=== PATIENT | female | born 1985 | race Hispanic/Latino ===

== ENCOUNTER 2017-12-08 23:06 | Emergency (ER) | payer SELFPAY ==
[~2017-12-08] VITALS: Ht 154.9 cm; Wt 96.9 kg
--- OUTSIDE RECORDS SUMMARY | 2017-12-08 23:09 | XMS REPORT | Clinical Summary ---
Author Author [facility] Organization [facility] Address Unknown Phone Unavailable Care Team Providers Care Mass Communications Professor Name Role Phone PCP Unavailable Allergies No Known Allergies Current Medications Prescription Sig. Disp. Refills Start End Date Status Date albuterol HFA (VENTOLIN Inhale 1-2 puffs by mouth 1 Inhaler 0 10/13/19 Active HFA) 90 mcg/actuation via inhaler every 6 (six) 18 19 inhaler hours as needed for Wheezing. guaiFENesin (MUCINEX) 600 Take 1 tablet (600 mg 20 tablet 0 10/15/19 10/15/19 Active mg 12 hr tablet total) by mouth 2 (two) 18 19 times daily. fluticasone (FLONASE) 50 1 spray by Nasal route 16 g 0 10/15/19 Active mcg/actuation nasal spray daily. 18 19 brompheniramine-pseudoeph Take 10 mLs by mouth 118 mL 0 10/15/19 Active -DM (BROMFED DM) 2-30-10 every 4 (four) hours as 18 mg/5 mL Syrp needed. albuterol (PROVENTIL) 2.5 Take 3 mLs (2.5 mg total) 75 mL 0 07/03/20 07/03/20 mg /3 mL (0.083 %) by nebulization every 6 16 17 nebulizer solution (six) hours as needed for Wheezing. ibuprofen (ADVIL,MOTRIN) Take 1 tablet (600 mg 30 tablet 0 11/29/19 12/09/19 600 MG tablet total) by mouth every 6 17 17 (six) hours as needed for Pain for up to 10 days. amoxicillin (AMOXIL) 500 Take 1 capsule (500 mg 30 capsule 0 11/29/19 12/09/19 MG capsule total) by mouth 3 (three) 17 17 times daily for 10 days. oseltamivir (TAMIFLU) 75 Take 1 capsule (75 mg 10 capsule 0 10/13/19 10/19/19 MG capsule total) by mouth every 12 18 18 (twelve) hours for 5 days. azithromycin (ZITHROMAX) Take 1 tablet (250 mg 6 tablet 0 10/13/19 10/19/19 250 MG tablet total) by mouth daily for 18 18 5 days Take first 2 tablets together, then 1 every day until finished.. predniSONE (DELTASONE) 20 Take 1 tablet (20 mg 10 tablet 0 10/13/19 10/19/19 MG tablet total) by mouth 2 (two) 18 18 times daily for 5 days. ibuprofen (ADVIL,MOTRIN) Take 1 tablet (600 mg 30 tablet 0 10/15/19 10/26/19 600 MG tablet total) by mouth every 6 18 18 (six) hours as needed for Pain for up to 10 days. benzonatate (TESSALON) Take 1 capsule (100 mg 21 capsule 0 10/15/19 10/23/19 100 MG capsule total) by mouth every 8 18 18 (eight) hours for 7 days. Active Problems Not on file Encounters Date Type Specialty Care Team Description 10/15/2017 Emergency Emergency Medicine Zena Arroyo, Influenza (Primary - MD Dx);Fever in 10/16/2017 adult;Otalgia of right ear 10/13/2017 Emergency Emergency Medicine Rashid Nation DO Fever in adult (Primary - Dx);Mild intermittent 10/14/2017 asthma with acute exacerbation;Bronchospasm ;Bronchitis;Influenza B after 12/07/2016 Social History Tobacco Use Types Packs/Day Years Used Date Never Smoker Smokeless Tobacco: Never Used Alcohol Use Drinks/Week oz/Week Comments No Sex Assigned at Date Recorded Not on file Last Filed Vital Signs Vital Sign Reading Time Taken Blood Pressure 141/94 10/15/2017 11:15 PM HYDROLOGY TECHNICIAN Pulse 105 10/15/2017 11:15 PM HYDROLOGY TECHNICIAN Temperature 38 C (100.4 F) 10/15/2017 11:15 PM HYDROLOGY TECHNICIAN Respiratory Rate 20 10/15/2017 11:15 PM HYDROLOGY TECHNICIAN Oxygen Saturation 97% 10/15/2017 11:15 PM HYDROLOGY TECHNICIAN Inhaled Oxygen - - Concentration Weight 98.2 kg (216 lb 7 oz) 10/15/2017 10:05 PM HYDROLOGY TECHNICIAN Height 155 cm (5' 1.02") 10/15/2017 10:05 PM HYDROLOGY TECHNICIAN Body Mass Index 40.86 10/15/2017 10:05 PM HYDROLOGY TECHNICIAN Plan of Treatment Not on file Results * XR chest 2 views (10/13/2017 11:09 PM) Specimen Performing Laboratory GE RIS Narrative FINAL REPORT INDICATION: COUGH WHEEZING FEVER COMPARISON: July 03, 2016 TECHNIQUE: Frontal and lateral views of the chest. FINDINGS: Lungs and pleura: Clear lungs. No effusion. Heart and mediastinum: Normal heart size. Unremarkable mediastinal contours. Osseous structures: No acute abnormality. Additional findings: None. IMPRESSION: No acute intrathoracic abnormality. Signed: JR Mc Robert MD Report Verified Date/Time:10/13/2017 23:14:13 Reading Location: [address] Body Reading Room Procedure Note Interface, External Ris In - 10/13/2017 11:16 PM HYDROLOGY TECHNICIAN FINAL REPORT INDICATION: COUGH WHEEZING FEVER COMPARISON: July 03, 2016 TECHNIQUE: Frontal and lateral views of the chest. FINDINGS: Lungs and pleura: Clear lungs. No effusion. Heart and mediastinum: Normal heart size. Unremarkable mediastinal contours. Osseous structures: No acute abnormality. Additional findings: None. IMPRESSION: No acute intrathoracic abnormality. Signed: JR Mc Robert MD Report Verified Date/Time: 10/13/2017 23:14:13 Reading Location: [facility] C[facility] CT Body Reading Room * Rapid Influenza A&B Screen (10/13/2017 10:53 PM) Component Value Ref Range Rapid Influenza A Antigen Negative Negative, Inconclusive Rapid influenza B Antigen Positive (A) Negative, Inconclusive Specimen Performing Laboratory Nasal - Nasopharyngeal [facility], Swab [facility] [address] [place] [address] after 12/07/2016
--- OUTSIDE RECORDS SUMMARY | 2017-12-08 23:09 | XMS REPORT ---
Author Author [facility] Address Unknown Phone Unavailable Care Team Providers Care Position Classification Specialist Name Role Phone FRIEDA CUELLO Unavailable Unavailable Problems This patient has no known problems. Allergies, Adverse Reactions, Alerts This patient has no known allergies or adverse reactions. Medications This patient has no known medications. Results Test Description Test Time Test Comments Text Results Atomic Results Result Comments RAPID INFLUENZA A&B SCREEN 2017-10-13 23:17:00 RAPID INFLUENZA A AG (BEAKER) (test svks=5539) Negative Negative, Inconclusive RAPID INFLUENZA B AG (BEAKER) (test avwa=1192) Positive Negative, Inconclusive RAD, CHEST, 2 [id number] 23:14:00Reason for exam:->COUGHover 1 wkReason for exam:->WHEEZINGtodayReason for exam:->FEVERtodayFINAL REPORT INDICATION: COUGHWHEEZINGFEVER COMPARISON: July 03, 2016 TECHNIQUE : Frontal and lateral views of the chest. FINDINGS: Lungs and pleura: Clear lungs. No effusion.Heart and mediastinum: Normal heart size. Unremarkable mediastinal contours.Osseous structures: No acute abnormality.Additional findings: None. IMPRESSION: No acute intrathoracic abnormality. Signed: JR Perez Robert MDReport Verified Date/Time: 10/13/2017 23:14:13 Reading Location: [facility] B1 [id number] CT Body Reading Room
[2017-12-08] MEDS ORDERED: IBUPROFEN400 MG PO (23:32)
[2017-12-08] MEDS ORDERED: PROAIR HFA INH8.5 GM INH (23:32)
[2017-12-08] MEDS ORDERED: BROMFED DM COU118 ML PO (23:32)
== END 2017-12-08 23:40 | disposition home or self-care (01) ==
LOC: FSED 23:06
DX: R50.9 Fever, unspecified (principal); R05 Cough; J20.9 Acute bronchitis, unspecified; J00 Acute nasopharyngitis [common cold]; J45.909 Unspecified asthma, uncomplicated; E28.2 Polycystic ovarian syndrome
CPT/HCPCS: 99282

== ENCOUNTER 2020-09-22 18:42 | Emergency (ER) | payer SELFPAY ==
[~2020-09-22] VITALS: Ht 154.9 cm; Wt 107.0 kg
[~2020-09-22 18:42] MED LIST: BROMFED DM COU118 ML PO; IBUPROFEN400 MG PO; PROAIR HFA INH8.5 GM INH
[2020-09-22] MEDS ORDERED: IBUPROFEN IB200 MG PO (19:11)
[2020-09-22] MEDS ORDERED: ACETAMINOPHEN500 MG PO (19:11)
== END 2020-09-22 19:43 | disposition home or self-care (01) ==
LOC: FSED 19:05
DX: M54.2 Cervicalgia (principal); V43.51XA Car driver injured in collision with sport utility vehicle in traffic accident, initial encounter; Y92.488 Other paved roadways as the place of occurrence of the external cause
CPT/HCPCS: 99282

== ENCOUNTER 2021-02-06 00:17 | Emergency (ER) | payer BC ==
[~2021-02-06] VITALS: Ht 154.9 cm; Wt 111.1 kg
[~2021-02-06 00:17] MED LIST changes: +ACETAMINOPHEN500 MG PO; +IBUPROFEN IB200 MG PO
[2021-02-06] MEDS ORDERED: BENADRYL25 M1 PO (00:39)
[2021-02-06] MEDS ORDERED: LOTRIMIN AF12 GM TOP (00:39)
[2021-02-06 00:41] VITALS: BP 142/92
== END 2021-02-06 00:46 | disposition home or self-care (01) ==
LOC: FSED 00:35
DX: B35.4 Tinea corporis (principal); J45.909 Unspecified asthma, uncomplicated
CPT/HCPCS: 99282

== ENCOUNTER 2022-01-11 18:17 | Emergency (ER) | payer OTHER ==
[~2022-01-11] VITALS: Ht 154.9 cm; Wt 108.0 kg
[~2022-01-11 18:17] MED LIST changes: +BENADRYL25 M1 PO; +LOTRIMIN AF12 GM TOP
[2022-01-11] MEDS ORDERED: IBUPROFEN 400 MG TAB PO ONE (18:30)
[2022-01-11] MEDS ORDERED: IBUPROFEN 200 MG TAB ONE (18:45)
[2022-01-11] MEDS ORDERED: KETOROLAC TROME10 MG PO (19:38)
== END 2022-01-11 20:30 | disposition home or self-care (01) ==
LOC: FSED 19:26
DX: M79.642 Pain in left hand (principal); S62.311A Displaced fracture of base of second metacarpal bone, left hand, initial encounter for closed fracture; V43.52XA Car driver injured in collision with other type car in traffic accident, initial encounter; Y92.488 Other paved roadways as the place of occurrence of the external cause
CPT/HCPCS: 99283

== ENCOUNTER 2024-09-23 09:09 | Emergency (ER) | payer OTHER ==
[~2024-09-23] VITALS: Ht 154.9 cm; Wt 100.0 kg
[~2024-09-23 09:09] MED LIST changes: +KETOROLAC TROME10 MG PO
[2024-09-23] MEDS ORDERED: DICYCLOMINE HCL20 MG PO (09:28)
[2024-09-23] MEDS: MECLIZINE HCL 12.5 MG TAB PO ONE (09:50)
[2024-09-23] MEDS ORDERED: ONDANSETRON ODT4 MG PO (10:22)
[2024-09-23 10:25] VITALS: PULSE 82; RESP 18; TEMP 97.8; O2SAT 100
[2024-09-23] MEDS ORDERED: MACROBID 100 M100 MG PO (10:25)
[2024-09-23] MEDS ORDERED: ANTIVERT25 M1 PO (10:25)
== END 2024-09-23 10:33 | disposition home or self-care (01) ==
LOC: FSED 09:15
DX: R42 Dizziness and giddiness (principal); N39.0 Urinary tract infection, site not specified; J45.909 Unspecified asthma, uncomplicated
CPT/HCPCS: 70450; 80053; 81003; 81025; 85025; 99284